=== PATIENT | female | born 1985 | race Caucasian/White ===

== ENCOUNTER 2023-04-04 16:59 | Emergency (ER) | payer OTHER ==
[2023-04-04 17:08] VITALS: BP 108/54; PULSE 53; RESP 18; TEMP 98.1; BMI 28.0
[2023-04-04 19:55] LABS: BASO % 0.8 % (0-2.0); EOS % 0.8 % (0-4.5); HEMATOCRIT 40.4 % (32.4-45.2); HEMOGLOBIN 13.9 GM/dL (10.7-15.3); LYMPH % 29.2 % (8-40); MCH 29.1 pg (25.7-33.7); MCHC 34.5 g/dl (32.0-36.0); MEAN CELL VOLUME 84.5 fl (80-96); MEAN PLT VOLUME 8.2 fl (7.5-11.1); MONO % 5.5 % (3.8-10.2); NEUT % 63.7 % (42.8-82.8); PLATELET COUNT 285 10^3/uL (134-434); RBC 4.78 M/mm3 (3.60-5.2); RDW 13.5 % (11.6-15.6); WHITE BLOOD COUNT 7.9 K/mm3 (4.0-10.0)
[2023-04-04 20:13] LABS: POTASSIUM 3.9 mmol/L (3.5-5.1)
[2023-04-04 20:15] LABS: ALBUMIN 3.4 g/dl (3.4-5.0); BLOOD UREA NITROGEN 5.5 mg/dL (7-18)
[2023-04-04 20:18] LABS: CREATININE 0.4 mg/dL (0.55-1.3)
[2023-04-04 20:20] LABS: BILIRUBIN,TOTAL 0.3 mg/dL (0.2-1)
[2023-04-04 21:21] LABS: EPI CELLS >36 /uL (0-25.1); HYALINE CASTS 1 /uL (0-3.1); URINE APPEARANCE CLOUDY; URINE BACTERIA 2445 /uL (0-1359); URINE BILIRUBIN NEGATIVE (NEGATIVE); URINE COLOR YELLOW; URINE GLUCOSE (UA) NEGATIVE (NEGATIVE); URINE KETONE 2+ (NEGATIVE); URINE LEUK ESTERASE 2+ (NEGATIVE); URINE NITRITE NEGATIVE (NEGATIVE); URINE PROTEIN NEGATIVE (NEGATIVE); URINE RBC 6 /uL (0-23.9); URINE WBC 224 /uL (0-25.8)
[2023-04-04] MEDS ORDERED: CEPHALEXIN MONOHYDRATE 500 MG CAPSULE (UD) PO ONE (22:23)
[2023-04-04] MEDS ORDERED: CEPHALEXIN MONOHYDRATE 500 MG CAPSULE (UD) ONE (22:43)
== END 2023-04-04 22:53 | disposition home or self-care (01) ==
LOC: JER 16:59
DX: O26.892 Other specified pregnancy related conditions, second trimester (principal); R10.30 Lower abdominal pain, unspecified; O23.42 Unspecified infection of urinary tract in pregnancy, second trimester; Z3A.18 18 weeks gestation of pregnancy
CPT/HCPCS: 36415; 76815-TC; 80053; 81003; 84702; 84703; 85025; 87086; 99284-25

== ENCOUNTER 2023-08-17 03:55 | Inpatient (IN) | payer OTHER ==
[2023-08-17 07:04] LABS: BASO % 0.4 % (0-2.0); EOS % 1.5 % (0-4.5); HEMATOCRIT 38.4 % (32.4-45.2); HEMOGLOBIN 13.1 GM/dL (10.7-15.3); LYMPH % 24.4 % (8-40); MCH 29.7 pg (25.7-33.7); MCHC 34.1 g/dl (32.0-36.0); MEAN CELL VOLUME 87.3 fl (80-96); MEAN PLT VOLUME 8.6 fl (7.5-11.1); MONO % 6.3 % (3.8-10.2); NEUT % 67.4 % (42.8-82.8); PLATELET COUNT 258 10^3/uL (134-434); RDW 14.7 % (11.6-15.6); WHITE BLOOD COUNT 9.7 K/mm3 (4.0-10.0)
[2023-08-17 07:29] LABS: CALCIUM 9.4 mg/dL (8.5-10.1)
[2023-08-17 07:30] LABS: ALBUMIN 2.7 g/dl (3.4-5.0); BLOOD UREA NITROGEN 8.4 mg/dL (7-18)
[2023-08-17 07:33] LABS: CREATININE 0.4 mg/dL (0.55-1.3)
[2023-08-17 07:35] LABS: BILIRUBIN,TOTAL 0.3 mg/dL (0.2-1); TOT PROT 6.4 g/dl (6.4-8.2)
[2023-08-17] MEDS ORDERED: ELECTROLYTE-148 SOLN 1,000 ML IV SCH (09:15)
[2023-08-17 09:38] LABS: POTASSIUM 4.1 mmol/L (3.5-5.1)
[2023-08-17 09:39] LABS: CALCIUM 9.4 mg/dL (8.5-10.1)
[2023-08-17 09:40] LABS: BLOOD UREA NITROGEN 7.8 mg/dL (7-18)
[2023-08-17 09:43] LABS: CREATININE 0.4 mg/dL (0.55-1.3)
[2023-08-17] MEDS ORDERED: OXYTOCIN 30 UNITS in 0.9% NS 30 UNIT/500 ML INFUS.BAG IVPB SCH (09:45)
[2023-08-17 09:52] VITALS: BMI 30.4
[2023-08-17] MEDS ORDERED: OXYTOCIN 30 UNITS in 0.9% NS 30 UNIT/500 ML INFUS.BAG IVPB ONE (10:00)
[2023-08-17 10:30] LABS: INR 0.98 (0.83-1.09); PROTHROMBIN TIME (PATIENT) 11.4 SEC (9.7-13.0)
[2023-08-17 10:33] LABS: ACTIVATED PTT 27.2 SECONDS (25.2-36.5)
[2023-08-17] MEDS ORDERED: LIDOCAINE HCL 1% PRESERVATIVE FREE - 30ML VIAL ONE (12:06)
[2023-08-17] MEDS ORDERED: OXYTOCIN 20 UNITS in 0.9% NS 20 UNIT/1,000 ML INFUS.BAG IV ONE (12:24)
[2023-08-17] MEDS ORDERED: BENZOCAINE 20% 57 GM BOTTLE TP PRN (12:28)
[2023-08-17] MEDS ORDERED: BISACODYL 10 MG SUPP.RECT RC PRN (12:28)
[2023-08-17] MEDS ORDERED: BENZOCAINE 28 GM HEMORRHOIDAL OINTMENT TP PRN (12:28)
[2023-08-17] MEDS ORDERED: WITCH HAZEL 50% (TUCKS) 40 PAD/JAR PAD TP PRN (12:28)
[2023-08-17] MEDS ORDERED: oxyCODONE HCL 5 MG TABLET PO PRN (12:28)
[2023-08-17] MEDS ORDERED: METHYLERGONOVINE MALEATE 0.2 MG/1 ML AMP IM PRN (12:28)
[2023-08-17] MEDS ORDERED: ACETAMINOPHEN 325 MG TABLET (FP) PO PRN (12:28)
[2023-08-17] MEDS ORDERED: OXYTOCIN 20 UNITS in 0.9% NS 20 UNIT/1,000 ML INFUS.BAG IV SCH (12:30)
[2023-08-17] MEDS: IBUPROFEN 600 MG TABLET (FP) PO PRN ×2 (12:43→22:26)
[2023-08-17 13:06] LABS: CORD BASE EXCESS -1.6 mmol/L (0-2); CORD HCO3 25.4 mmHg (20-29); CORD PCO2 51.2 mmHg (30-78); CORD pH 7.314 (7.14-7.44)
[2023-08-17 13:09] LABS: CORD HCO3 28.4 mmHg (20-29); CORD PCO2 67.6 mmHg (30-78); CORD pH 7.241 (7.14-7.44)
[2023-08-17 14:21] LABS: POC NITRAZINE POS
[2023-08-17 15:08] VITALS: RESP 18
[2023-08-17 16:38] LABS: HIV INTERPRETATION NEGATIVE (NEGATIVE)
[2023-08-18] MEDS: IBUPROFEN 600 MG TABLET (FP) PO PRN ×3 (06:12→22:01)
[2023-08-18 08:33] LABS: BASO % 0.2 % (0-2.0); HEMATOCRIT 33.7 % (32.4-45.2); HEMOGLOBIN 11.7 GM/dL (10.7-15.3); LYMPH % 27.7 % (8-40); MCH 30.4 pg (25.7-33.7); MCHC 34.7 g/dl (32.0-36.0); MEAN CELL VOLUME 87.7 fl (80-96); MEAN PLT VOLUME 9.1 fl (7.5-11.1); MONO % 5.7 % (3.8-10.2); NEUT % 65.4 % (42.8-82.8); PLATELET COUNT 229 10^3/uL (134-434); RBC 3.85 M/mm3 (3.60-5.2); RDW 15.1 % (11.6-15.6); WHITE BLOOD COUNT 10.3 K/mm3 (4.0-10.0)
[2023-08-18] MEDS ORDERED: SENNOSIDES/DOCUSATE COMBO (SENNA PLUS) TABLET (UD) PO PRN (22:00)
[2023-08-19] MEDS: IBUPROFEN 600 MG TABLET (FP) PO PRN (13:05)
[2023-08-19 14:34] VITALS: BP 93/52; PULSE 71; TEMP 98.1
== END 2023-08-19 15:53 | disposition home or self-care (01) | DRG 560 ==
LOC: JDEL 03:55 → JLDR 07:45 → J3W 14:40
PROVIDERS: ADMIT Student in an Organized Health Care Education/Training Program; ATTEND Obstetrics & Gynecology
PROC: 10E0XZZ Delivery of Products of Conception, External Approach (ICD-10-PCS; principal; 2023-08-17)
DX: O42.92 Full-term premature rupture of membranes, unspecified as to length of time between rupture and onset of labor (principal); O36.5930 Maternal care for other known or suspected poor fetal growth, third trimester, not applicable or unspecified; Z3A.37 37 weeks gestation of pregnancy; Z37.0 Single live birth
CPT/HCPCS: 36415; 36600; 76819-TC; 80048; 80053; 82803; 83986-QW; 85025; 85610; 85730; 86780; 86850; 86900; 86901; 87389